=== PATIENT | female | born 1995 | race Native Hawaiian/Other Pacific Islander ===

== ENCOUNTER 2017-09-03 19:59 | Emergency (ER) | payer OTHER ==
[2017-09-03 20:12] VITALS: BP 130/89; PULSE 92; RESP 18; O2SAT 99; BMI 30.1
[2017-09-03 20:23] VITALS: TEMP 98.6
[2017-09-03] MEDS ORDERED: Sodium Chloride 0.9% 1,000 ML IV SCH (20:30)
--- NOTE | 2017-09-03 20:36 | ED PDOC ---
Arrival/HPI - General Chief Complaint: Seizure Time Seen by Provider: 09/03/17 20:01 Historian: Patient, Family (Mother) - History of Present Illness Narrative History of Present Illness (Text): 09/03/17 20:28 A 21 year old female, whose past medical history includes questionable seizure years ago, presents to the emergency department following a possible seizure episode this evening at a restaurant. The patient states that she was feeling unwell, went to the bathroom and vomited. She states she came back and had complaints of a headache. The patient was then given 2 Tylenol. The patient's mother states that shortly after, the patient passed out for about 30 seconds. The patient fell to the ground with some shaking of her arms. The mother states that the patient's eyes rolled back and that when she woke up, she did not recall what had happened before the event.There was no post ictal state,no urinary incontinence or tongue biting. The patient states that she still has a slight headache. She also notes that she went to the gym earlier, but denies history of head trauma. The patient denies fevers, chills, chest pain, shortness of breath, dyspnea on exertion, abdominal pain, nausea, vomiting, diarrhea, back pain, neck pain, urinary/bowel changes, trauma/injury, sore throat, cough, or any other complaint. Time/Duration: Prior to Arrival Symptom Course: Unchanged Activities at Onset: Rest, Light Context: Other (Restaurant) Past Medical History - Provider Review Nursing Documentation Reviewed: Yes - Infectious Disease Hx of Infectious Diseases: None - Cardiac Hx Cardiac Disorders: No - Pulmonary Hx Respiratory Disorders: No - Neurological Hx Neurological Disorder: Yes Hx Seizures: Yes (stress related, 5 years ago) - HEENT Hx HEENT Disorder: No - Endocrine/Metabolic Hx Diabetes Mellitus Type 2: No - Hematological/Oncological Hx Hepatitis C: No - Integumentary Hx Psoriasis: No - Musculoskeletal/Rheumatological Hx Musculoskeletal Disorders: No - Gastrointestinal Hx Gastrointestinal Disorders: No - Genitourinary/Gynecological Hx Genitourinary Disorders: No - Psychiatric Hx Psychophysiologic Disorder: No Hx Substance Use: No - Surgical History Hx Appendectomy: Yes - Anesthesia Hx Anesthesia: Yes Hx Anesthesia Reactions: No Family/Social History - Physician Review Nursing Documentation Reviewed: Yes Family/Social History: No Known Family HX Smoking Status: Never Smoked Hx Alcohol Use: No Hx Substance Use: No Allergies/Home Meds Allergies/Adverse Reactions: Allergies apple Allergy (Verified 09/03/17 20:13) ANAPHYLAXIS banana Allergy (Verified 09/03/17 20:13) ANAPHYLAXIS soy Allergy (Verified 09/03/17 20:13) ANAPHYLAXIS Home Medications: Home Meds Medication Instructions Recorded Confirmed No Known Home Med 09/03/17 09/03/17 Review of Systems - Physician Review All systems were reviewed & negative as marked: Yes - Review of Systems Constitutional: absent: Fevers, Night Sweats ENT: absent: Sore Throat Respiratory: absent: SOB, Cough Cardiovascular: absent: Chest Pain, GARCIA Gastrointestinal: absent: Abdominal Pain, Stool Changes, Diarrhea, Nausea, Vomiting Genitourinary Female: absent: Urine Output Changes Musculoskeletal: absent: Back Pain, Neck Pain Neurological: Other (Seizure- like activity). absent: Headache, Dizziness Physical Exam Vital Signs Reviewed: Yes Vital Signs Temp Pulse Resp BP Pulse Ox 09/03/17 20:15 98.6 F 09/03/17 20:11 92 H 18 130/89 99 Blood Pressure: Normal Pulse: Tachycardic Respiratory Rate: Normal Appearance: Positive for: Well-Appearing, Non-Toxic, Comfortable Pain Distress: None Mental Status: Positive for: Alert and Oriented X 3 Finger Stick Blood Glucose: 95 - Systems Exam Head: Present: Atraumatic, Normocephalic Pupils: Present: PERRL Extroacular Muscles: Present: EOMI Conjunctiva: Present: Normal Mouth: Present: Moist Mucous Membranes Neck: Present: Normal Range of Motion. No: Meningeal Signs, MIDLINE TENDERNESS Respiratory/Chest: Present: Clear to Auscultation, Good Air Exchange. No: Respiratory Distress, Accessory Muscle Use Cardiovascular: Present: Regular Rate and Rhythm, Normal S1, S2. No: Murmurs Abdomen: Present: Normal Bowel Sounds. No: Tenderness, Distention, Peritoneal Signs Back: Present: Normal Inspection Upper Extremity: Present: Normal Inspection. No: Cyanosis, Edema Lower Extremity: Present: Normal Inspection. No: Edema Neurological: Present: GCS=15, CN II-XII Intact, Speech Normal, Motor Func Grossly Intact, Normal Sensory Function, Normal Cerebellar Funct Skin: Present: Warm, Dry, Normal Color. No: Rashes Psychiatric: Present: Alert, Oriented x 3, Normal Insight, Normal Concentration Medical Decision Making ED Course and Treatment: 09/03/17 20:37 Impression: A 21 year old female presents to the emergency department for further evaluation after a seizure- like activity this evening. Plan: -- EKG -- Head CT -- Chest X-Ray -- Labs -- Urinalysis -- IV Fluids -- Reassess and disposition Progress Notes: EKG: Ordered, reviewed, and independently interpreted the EKG. Rate : 83 BPM Rhythm : NSR Interpretation : Non specific ST- T changes CT Head Without Intravenous Contrast FINDINGS: Brain: The white-bakre differentiation is preserved demonstrating no acute territorial type infarct. No acute intracranial hemorrhage is seen. Midline shift: There is no midline shift. Ventricles: No ventriculomegaly. Bones/joints: The calvarium demonstrates no evidence for a depressed fracture. Soft tissues: No acute abnormality. Sinuses: Unremarkable as visualized. No acute sinusitis. Mastoid air cells: No mastoid effusion. IMPRESSION: 1. No acute intracranial abnormality. Dictated and Authenticated by: Masoud Merida MD 09/03/2017 9:38 PM Eastern Time ([place] & [place]) 09/03/17 21:41 Chest xray: No acute process, interpreted by me. - Lab Interpretations Lab Results: 09/03/17 20:50 09/03/17 20:50 Lab Results 09/03/17 20:50: WBC 10.8, RBC 4.50, Hgb 13.2, Hct 37.8, MCV 84.0, MCH 29.3, MCHC 34.9, RDW 12.4, Plt Count 310, MPV 11.0 09/03/17 20:50: Sodium 138, Potassium 4.0, Chloride 102, Carbon Dioxide 24, Anion Gap 16, BUN 16, Creatinine 1.0, Est GFR ( Amer) > 60, Est GFR (Non- Af Amer) > 60, Random Glucose 108, Calcium 9.5, Total Bilirubin 0.5, AST 29, ALT 46, Alkaline Phosphatase 64, Lactate Dehydrogenase 525, Total Creatine Kinase 239 H, CK-MB (CK-2) 1.2, CK-MB (CK-2) % Cancelled, Troponin I < 0.01, Total Protein 7.9, Albumin 4.8, Globulin 3.1, Albumin/Globulin Ratio 1.5 09/03/17 20:50: PT 12.4, INR 1.13 H, APTT 27.8 09/03/17 20:10: POC Glucose (mg/dL) 95 I have reviewed the lab results: Yes - RAD Interpretation Radiology Orders: 09/03/17 20:16 HEAD W/O CONTRAST [CT] Stat 09/03/17 20:17 CHEST ONE VIEW [RAD] Stat - EKG Interpretation Interpreted by ED Physician: Yes Type: 12 lead EKG - Medication Orders Current Medication Orders: Discontinued Medications Sodium Chloride (Sodium Chloride 0.9%) 1,000 mls @ 100 mls/hr IV .Q10H ALEXANDREA Last Admin: 09/03/17 20:49 Dose: 100 mls/hr eMAR Start Stop Document 09/03/17 20:49 SC (Rec: 09/03/17 20:49 SC [id number]) Intravenous Solution Start Date 09/03/17 Start Time 20:49 - Scribe Statement The provider has reviewed the documentation as recorded by the Barryibjean-pierre Jarrett Provider Scribe Attestation: All medical record entries made by the Scribe were at my direction and personally dictated by me. I have reviewed the chart and agree that the record accurately reflects my personal performance of the history, physical exam, medical decision making, and the department course for this patient. I have also personally directed, reviewed, and agree with the discharge instructions and disposition Disposition/Present on Arrival - Present on Arrival Any Indicators Present on Arrival: No History of DVT/PE: No History of Uncontrolled Diabetes: No Urinary Catheter: No History of Decub. Ulcer: No History Surgical Site Infection Following: None - Disposition Have Diagnosis and Disposition been Completed?: Yes Diagnosis: Syncope, Atypical seizure Disposition: AGAINST MEDICAL ADVICE Disposition Time: 21:54 Patient Plan: Observation Condition: STABLE
[2017-09-03 21:03] LABS: HEMATOCRIT 37.8 % (36.0-48.0); MEAN CORPUSCULAR HEMOGLOBIN 29.3 pg (25.0-35.0); MEAN CORPUSCULAR HGB CONC 34.9 g/dl (31.0-37.0); RED CELL DISTRIBUTION WIDTH 12.4 % (11.5-14.5); WHITE BLOOD COUNT 10.8 10^3/ul (4.5-11.0)
[2017-09-03 21:07] LABS: ALB/GLOB RATIO 1.5 (1.1-1.8); ALKALINE PHOSPHATASE 64 U/L (38-126); ALT/SGPT 46 U/L (7-56); AST/SGOT 29 U/L (14-36); BILIRUBIN,TOTAL 0.5 mg/dL (0.2-1.3); BLOOD UREA NITROGEN 16 mg/dL (7-21); CALCIUM 9.5 mg/dL (8.4-10.5); CARBON DIOXIDE 24 mmol/L (21-33); CHLORIDE 102 mmol/L (98-107); GFR AFRICAN-AMERICAN > 60; GLUCOSE,RANDOM 108 mg/dL (70-110); SODIUM 138 mmol/L (132-148); TOTAL PROTEIN 7.9 g/dL (5.8-8.3)
[2017-09-03 21:14] LABS: INR 1.13 (0.93-1.08)
[2017-09-03 21:15] LABS: PARTIAL THROMBOPLASTIN TIME 27.8 Seconds (25.1-36.5)
[2017-09-03 21:19] LABS: TROPONIN I < 0.01 ng/mL
--- NOTE | 2017-09-03 21:38 | CT ---
EXAM: CT Head Without Intravenous Contrast EXAM DATE/TIME: 09/03/2017 8:16 PM CLINICAL HISTORY: The patient age is 21 years old and is female; Pain; Headache; Headache not specified; Additional info: Seizure Facility exam id and description: Ct heads head w/o contrast TECHNIQUE: Axial computed tomography images of the head/brain without intravenous contrast. All CT scans at this facility use one or more dose reduction techniques, viz.: automated exposure control; ma/kV adjustment per patient size (including targeted exams where dose is matched to indication; i.e. head); or iterative reconstruction technique. COMPARISON: No relevant prior studies available. FINDINGS: Brain: The white-baker differentiation is preserved demonstrating no acute territorial type infarct. No acute intracranial hemorrhage is seen. Midline shift: There is no midline shift. Ventricles: No ventriculomegaly. Bones/joints: The calvarium demonstrates no evidence for a depressed fracture. Soft tissues: No acute abnormality. Sinuses: Unremarkable as visualized. No acute sinusitis. Mastoid air cells: No mastoid effusion. IMPRESSION: 1. No acute intracranial abnormality.
--- NOTE | 2017-09-04 10:20 | RAD ---
PROCEDURE: CHEST RADIOGRAPH, 1 VIEW HISTORY: seizure COMPARISON: None available. FINDINGS: LUNGS: Clear. PLEURA: No pneumothorax or pleural fluid seen. CARDIOVASCULAR: Normal. OSSEOUS STRUCTURES: No significant abnormalities. VISUALIZED UPPER ABDOMEN: Normal. OTHER FINDINGS: None. IMPRESSION: No active disease.
--- NOTE | 2017-09-04 17:03 | CARD ---
APPROVED REPORT EKG Measurement Heart [id number] <Conclusion> Normal sinus rhythm Minimal voltage criteria for LVH, may be normal variant Borderline ECG
== END 2017-09-03 23:27 | disposition left against medical advice (07) ==
LOC: ED 19:59 → ERH 21:49 → UNDOADMOB 21:49
DX: R56.9 Unspecified convulsions (principal); R55 Syncope and collapse
CPT/HCPCS: 70450; 71010; 80053; 82550; 82553; 82948; 83615; 84484; 85027; 85610; 85730; 93005; 99285; J7040

== ENCOUNTER 2018-08-08 21:43 | Emergency (ER) | payer OTHER ==
[2018-08-08 22:32] VITALS: BMI 27.4
[2018-08-08 22:45] VITALS: BP 129/94; PULSE 88; RESP 18; TEMP 98.1
--- NOTE | 2018-08-08 22:58 | ED PDOC ---
Arrival/HPI - General Historian: Patient - History of Present Illness Narrative History of Present Illness (Text): 08/08/18 22:57 22yo female with no pmhx who present with complaint of left knee pain. states she felt her left knee patellar out of place yesterday, while stretching in Gym and then it went back into place. states she has been have localized pain to her medial left knee and intermittent numbness to her toes. States she started having worsening pain today. she is ambulating with slight limp. Denies focal weakness. <Amadou Melendez - Last Filed: 08/09/18 00:37> <Mario Powell - Last Filed: 08/12/18 00:14> - General Chief Complaint: Lower Extremity Problem/Injury Time Seen by Provider: 08/08/18 22:42 Past Medical History - Provider Review Nursing Documentation Reviewed: Yes - Infectious Disease Hx of Infectious Diseases: None - Cardiac Hx Cardiac Disorders: No - Pulmonary Hx Respiratory Disorders: No - Neurological Hx Neurological Disorder: Yes Hx Seizures: Yes (stress related, 5 years ago) - HEENT Hx HEENT Disorder: No - Endocrine/Metabolic Hx Endocrine Disorders: No - Hematological/Oncological Hx Blood Disorders: No - Integumentary Hx Dermatological Disorder: No - Musculoskeletal/Rheumatological Hx Musculoskeletal Disorders: No - Gastrointestinal Hx Gastrointestinal Disorders: No - Genitourinary/Gynecological Hx Genitourinary Disorders: No - Psychiatric Hx Psychophysiologic Disorder: No Hx Substance Use: No - Surgical History Hx Appendectomy: Yes - Anesthesia Hx Anesthesia: Yes Hx Anesthesia Reactions: No <Amadou Melendez - Last Filed: 08/09/18 00:37> Family/Social History - Physician Review Nursing Documentation Reviewed: Yes Family/Social History: Unknown Family HX Smoking Status: Never Smoked Hx Alcohol Use: No Hx Substance Use: No <Amadou Melendez - Last Filed: 08/09/18 00:37> Allergies/Home Meds <Amadou Melendez - Last Filed: 08/09/18 00:37> <Mario Powell - Last Filed: 08/12/18 00:14> Allergies/Adverse Reactions: Allergies apple Allergy (Verified 09/03/17 20:13) ANAPHYLAXIS banana Allergy (Verified 09/03/17 20:13) ANAPHYLAXIS pear Allergy (Verified 08/08/18 22:32) ANAPHYLAXIS soy Allergy (Verified 09/03/17 20:13) ANAPHYLAXIS Review of Systems - Physician Review All systems were reviewed & negative as marked: Yes - Review of Systems Constitutional: Normal Eyes: Normal ENT: Normal Respiratory: Normal Cardiovascular: Normal Gastrointestinal: Normal Genitourinary Female: Normal Musculoskeletal: Arthralgias (LEft knee) Skin: Normal Neurological: Normal Endocrine: Normal Hemo/Lymphatic: Normal Psychiatric: Normal <Diru,Happiness A - Last Filed: 08/09/18 00:37> Physical Exam Vital Signs Reviewed: Yes Vital Signs Temp Pulse Resp BP Pulse Ox 08/08/18 22:39 98.1 F 88 18 129/94 H 100 Temperature: Afebrile Blood Pressure: Normal Pulse: Regular Respiratory Rate: Normal Appearance: Positive for: Well-Appearing, Non-Toxic, Comfortable Pain Distress: None Mental Status: Positive for: Alert and Oriented X 3 - Systems Exam Head: Present: Atraumatic, Normocephalic Pupils: Present: PERRL Extroacular Muscles: Present: EOMI Conjunctiva: Present: Normal Mouth: Present: Moist Mucous Membranes Neck: Present: Normal Range of Motion Respiratory/Chest: Present: Clear to Auscultation, Good Air Exchange. No: Respiratory Distress, Accessory Muscle Use Cardiovascular: Present: Regular Rate and Rhythm, Normal S1, S2. No: Murmurs Abdomen: No: Tenderness, Distention, Peritoneal Signs Back: Present: Normal Inspection Upper Extremity: Present: Normal Inspection. No: Cyanosis, Edema Lower Extremity: Present: NORMAL PULSES, Normal ROM (with pain on full flexion), Tenderness (Medial left knee), Neurovascularly Intact, Other (Negative tompson/Stefani test). No: Edema, CALF TENDERNESS, Swelling, Deformity, Temperature Abnormalties Neurological: Present: GCS=15, CN II-XII Intact, Speech Normal Skin: Present: Warm, Dry, Normal Color. No: Rashes Psychiatric: Present: Alert, Oriented x 3, Normal Insight, Normal Concentration <Diru,Happiness A - Last Filed: 08/09/18 00:37> Vital Signs Temp Pulse Resp BP Pulse Ox 08/09/18 01:20 98 08/08/18 22:39 98.1 F 88 18 129/94 H 100 <Mario Powell - Last Filed: 08/12/18 00:14> Medical Decision Making ED Course and Treatment: 08/09/18 00:39 PT in ED for stated history. Left knee xray - Joint narrowing on medial aspect noted. No acute finding Result was DW the pt Knee immobilizer applied. Crutches given Pt advised to RICE knee Referred to ortho. Ibuprofen 600mg given for pain - RAD Interpretation Radiology Orders: 08/08/18 22:42 KNEE WITH PATELLA LEFT 3 VIEW [RAD] Stat - Medication Orders Current Medication Orders: Discontinued Medications Ibuprofen (Motrin Tab) 600 mg PO STAT STA Stop: 08/08/18 22:44 <Amadou Melendez - Last Filed: 08/09/18 00:37> - RAD Interpretation Radiology Orders: 08/08/18 22:42 KNEE WITH PATELLA LEFT 3 VIEW [RAD] Stat - Medication Orders Current Medication Orders: Discontinued Medications Ibuprofen (Motrin Tab) 600 mg PO STAT STA Stop: 08/08/18 22:44 Last Admin: 08/08/18 23:13 Dose: 600 mg <Mario Powell - Last Filed: 08/12/18 00:14> - PA / 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 <Mario Powell - Last Filed: 08/12/18 00:14> Disposition/Present on Arrival - Present on Arrival Any Indicators Present on Arrival: No History of DVT/PE: No History of Uncontrolled Diabetes: No Urinary Catheter: No History of Decub. Ulcer: No History Surgical Site Infection Following: None - Disposition Have Diagnosis and Disposition been Completed?: Yes Disposition Time: 00:40 Patient Plan: Discharge <Amaduo Melendez - Last Filed: 08/09/18 00:37> - Disposition Have Diagnosis and Disposition been Completed?: Yes <Mario Powell - Last Filed: 08/12/18 00:14> - Disposition Diagnosis: Knee pain Disposition: HOME/ ROUTINE Condition: STABLE Discharge Instructions (ExitCare): Knee Pain (DC) Additional Instructions: Follow up with orthopedist Return to ED for any new or worsening symptoms Prescriptions: RX: Ibuprofen [Motrin Tab] 600 mg PO Q6 #15 tab Referrals: Kate Guidry MD [Staff Provider] - Follow up with primary Forms: Your.MD (Irish)
[2018-08-09 01:23] VITALS: O2SAT 98
--- NOTE | 2018-08-09 12:15 | RAD ---
Date of service: 08/08/2018 PROCEDURE: Left Knee and patella radiographs. HISTORY: Pain. COMPARISON: None. FINDINGS: BONES: Normal. No fracture. JOINTS: Normal. No osteoarthritis. JOINT EFFUSION: None. OTHER FINDINGS: None. IMPRESSION: Normal radiographs of the left knee.
== END 2018-08-09 01:20 | disposition home or self-care (01) ==
LOC: ED 21:43
DX: M25.562 Pain in left knee (principal)